=== PATIENT | female | born 1985 | race Two or more races ===

== ENCOUNTER 2021-04-25 10:31 | Emergency (ER) | payer MEDICAID, OTHER ==
[~2021-04-25] VITALS: Ht 162.6 cm; Wt 75.7 kg
[2021-04-25 10:37] VITALS: BP 146/60
--- NOTE | 2021-04-25 10:46 | NUR ---
PT AMBULATED TO BED 05.
--- NOTE | 2021-04-25 10:55 | NUR ---
35 y/o F BIB self from home c/o R-sided facial numbness x 2 days. Patient states R eye pain, 3/10, poking/constant, non-radiating pain. Patient also states Left arm weakness and tingling sensation 3/10 that "moves all around my arm" x 5 days. Patient states nothing makes it better. NIHSS 0. Denies medications prior to arrival. States recent stressors of working two jobs and having a sick daughter at home. Pt denies nausea, vomiting, chest pain, abdominal pain, dizziness, headache, blurry vision. 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 VSS; respirations even/unlabored. Bed locked in lowest position, side rails x 1, call light in reach. pmh: pre-dm, pre-hld, pre-htn meds: none nka
--- NOTE | 2021-04-25 12:07 | NUR ---
Dr. Mayer is evaluating patient at bedside
--- NOTE | 2021-04-25 12:32 | NUR ---
performance improvement analyst AT BEDSIDE FOR EKG
--- NOTE | 2021-04-25 12:35 | NUR ---
Blood samples handed to CPT Vangie at ER bedside
[2021-04-25 12:39] LABS: BASOPHILS % (AUTO) 0.6 % (0.0-2.0); EOSINOPHILS # (AUTO) 0.1 K/uL (0-0.4); EOSINOPHILS % (AUTO) 1.5 % (0.0-4.0); HEMATOCRIT 30.8 % (36-48); HEMOGLOBIN 9.7 g/dL (12.0-16.0); LYMPHOCYTES # (AUTO) 1.6 K/uL (2.5-16.5); LYMPHOCYTES % (AUTO) 24.7 % (20.5-51.1); MEAN CORPUSCULAR HEMOGLOBIN 21 pg (27-31); MEAN CORPUSCULAR HGB CONC 32 g/dL (33-37); MEAN CORPUSCULAR VOLUME 67.4 fL (80-94); MONOCYTES # (AUTO) 0.4 K/uL (0.8-1.0); MONOCYTES % (AUTO) 6.2 % (1.7-9.3); NEUTROPHILS # (AUTO) 4.2 K/uL (1.8-7.7); PLATELET COUNT (AUTO) 324 K/uL (140-450); RED BLOOD CELL COUNT(AUTO) 4.57 MIL/uL (4.20-5.40); RED CELL DISTRIBUTION WIDTH 16.9 % (11.6-13.7); WHITE BLOOD COUNT (AUTO) 6.3 K/uL (4.8-10.8)
--- NOTE | 2021-04-25 12:43 | NUR ---
PT TAKEN TO CT VIA RKELLE.
--- NOTE | 2021-04-25 12:48 | NUR ---
Patient returned from CT by nalini placed back onto threat monitoring analyst.
[2021-04-25 13:13] LABS: APPEARANCE,URINE CLEAR (CLEAR); BILIRUBIN,URINE NEGATIVE (NEGATIVE); BLOOD, URINE NEGATIVE (NEGATIVE); COLOR,URINE YELLOW (YELLOW); LEUKOCYTE ESTERASE ,URINE NEGATIVE (NEGATIVE); NITRITE, URINE NEGATIVE (NEGATIVE); PH,URINE 6.5 (5.0-9.0); UGLUCOSE NEGATIVE (NEGATIVE)
[2021-04-25 13:32] LABS: ALBUMIN 3.6 g/dL (3.4-5.0); ANION GAP 10.1 (8-16); CARBON DIOXIDE 27.9 mmol/L (21-32); CREATININE 0.6 mg/dL (0.6-1.3); PROTHROMBIN TIME 9.4 secs (10.8-13.4); TOTAL BILIRUBIN 0.3 mg/dL (0.0-1.0)
--- NOTE | 2021-04-25 14:25 | NUR ---
[facility]
[2021-04-25 15:20] VITALS: BP 99/49
--- NOTE | 2021-04-25 15:20 | NUR ---
Patient discharged with v/s stable. Written and verbal after care instructions given and explained. Patient verbalized understanding. Ambulatory with steady gait. All questions addressed prior to discharge. Advised to follow up with PMD.
== END 2021-04-25 15:20 | disposition home or self-care (01) ==
LOC: MED 10:31
DX: R20.2 Paresthesia of skin (principal); R11.2 Nausea with vomiting, unspecified; R42 Dizziness and giddiness
CPT/HCPCS: 36415; 70450; 70496; 70498; 80053; 81003; 84484; 84702; 85025; 85610; 85730; 86886; 86900; 86901; 93005; 99285; Q9967

== ENCOUNTER 2022-09-12 15:44 | Emergency (ER) | payer OTHER ==
[~2022-09-12] VITALS: Ht 160 cm; Wt 73.9 kg
[2022-09-12 16:24] VITALS: BP 133/49
[2022-09-12] MEDS ORDERED: LIDOCAINE MPF 1% 10 MG/ML VIAL INJ ONE (17:15)
--- NOTE | 2022-09-12 17:15 | NUR ---
PT W/C ASSISTED TO BED 2.
[2022-09-12] MEDS ORDERED: BACITRACIN OINT 500 UNITS/GM PKT TP ONE (17:20)
[2022-09-12] MEDS ORDERED: CIPR500T4 PO (17:29)
--- NOTE | 2022-09-12 17:47 | NUR ---
PROVIDER AT BEDSIDE FOR LACERATION REPAIR.
== END 2022-09-12 18:31 | disposition home or self-care (01) ==
LOC: MED 15:44
DX: S91.311A Laceration without foreign body, right foot, initial encounter (principal); Z79.2 Long term (current) use of antibiotics; W45.0XXA Nail entering through skin, initial encounter; Y92.89 Other specified places as the place of occurrence of the external cause; Y93.89 Activity, other specified; Y99.8 Other external cause status
CPT/HCPCS: 12002; 90471; 90715; 99283; J2001

== ENCOUNTER 2022-09-15 10:22 | Emergency (ER) | payer OTHER ==
[~2022-09-15] VITALS: Ht 160 cm; Wt 66.7 kg
[~2022-09-15 10:22] MED LIST: CIPR500T4 PO
[2022-09-15 10:26] VITALS: BP 119/47
--- NOTE | 2022-09-15 11:04 | NUR ---
DR GOMEZ AT PT SIDE FOR EVAL
--- NOTE | 2022-09-15 11:06 | NUR ---
37 Y/O FEMALE BIB SELF PRESENTS TO ED FOR RECHECK OF THE LAC REPAIR ON THE RIGHT FOOT. DENIES ANY INCREASED SWELLING, NUMBNESS, BLEEDING ON THE AREA. PLACED ON 09/12/22 NKA PMH: DENIES
--- NOTE | 2022-09-15 11:19 | NUR ---
Patient discharged with v/s stable. Written and verbal after care instructions ABOUT WOUND CARE given and explained. Patient verbalized understanding. Ambulatory with steady gait. All questions addressed prior to discharge. Advised to follow up with PMD.
== END 2022-09-15 11:18 | disposition home or self-care (01) ==
LOC: MED 10:22
DX: S91.311D Laceration without foreign body, right foot, subsequent encounter (principal); Z79.899 Other long term (current) drug therapy; Z98.890 Other specified postprocedural states; W26.8XXD Contact with other sharp object(s), not elsewhere classified, subsequent encounter
CPT/HCPCS: 99281

== ENCOUNTER 2022-09-24 08:58 | Emergency (ER) | payer OTHER ==
[~2022-09-24] VITALS: Ht 157.5 cm; Wt 77.6 kg
--- NOTE | 2022-09-24 09:10 | NUR ---
PATIENT AMBULATED TO BED 6
[2022-09-24 09:11] VITALS: BP 143/70
--- NOTE | 2022-09-24 09:15 | NUR ---
37/F PRESENTS TO ED, STATES SHE IS HERE FOR SUTURE REMOVAL TO BOTTOM OF RIGHT FOOT. STATES SUTURES WERE PLACED HERE ON 09/15, DENIES WORSENING PAIN OR S/S OF INFECTION.
--- NOTE | 2022-09-24 09:40 | NUR ---
PT LEFT WITHOUT D/C PAPERWORK.
== END 2022-09-24 09:40 | disposition home or self-care (01) ==
LOC: MED 08:58
DX: S91.311D Laceration without foreign body, right foot, subsequent encounter (principal); Z48.02 Encounter for removal of sutures; Z79.2 Long term (current) use of antibiotics; X58.XXXD Exposure to other specified factors, subsequent encounter
CPT/HCPCS: 99281